=== PATIENT | female | born 1975 | race Caucasian/White ===

== ENCOUNTER 2016-07-24 14:31 | Emergency (ER) | payer BC ==
--- NOTE | 2016-07-24 14:39 | PDOC ---
History of Present Illness - General History Source: Patient Exam Limitations: No Limitations - History of Present Illness Initial Comments: 07/24/16 14:48 The patient is a 40 year old female, with a significant past medical history of congenital hip dysplasia and brain aneurysm, who presents to the emergency department complaining of left hip pain and dislocation earlier this afternoon. The patient reports she was able to bring her son to school this morning and ambulate without any problems all morning. After returning home the patient reports she was walking up the steps, her foot slid, and her hip rotated. The patient reports a history of a left hip replacement by Dr. Mcgrath in September 2015. She reports presenting to the ED in January with similar hip pain, s/p twisting hip outside. The patient states she was out of work for two months after her last hip dislocation. The patient denies any fever, chills, headache, or dizziness. The patient denies any chest pain, shortness of breath, diaphoresis, or palpitations. The patient denies any recent travel or heavy lifting. Allergies: Penicillins, mushrooms Past Surgical History: Left hip replacement (2015) Social History: Non-smoker. Denies alcohol or drug use. Orthopedic Surgeon: Dr. Mcgrath <Daquan Harvey - Last Filed: 07/24/16 17:31> - General History Source: Patient Exam Limitations: No Limitations <Sandra Díaz - Last Filed: 07/24/16 19:31> <Paola Brown - Last Filed: 07/25/16 04:27> - General Chief Complaint: Pain Stated Complaint: LEFT HIP PAIN Time Seen by Provider: 07/24/16 14:37 Past History <Daquan Harvey - Last Filed: 07/24/16 17:31> - Past Medical History Anemia: No Asthma: No Cancer: No Cardiac Disorders: No CVA: No COPD: No CHF: No Dementia: No Diabetes: No GI Disorders: No Disorders: No HTN: No Hypercholesterolemia: No Liver Disease: No Seizures: No Thyroid Disease: No - Surgical History Abdominal Surgery: No Appendectomy: No Cardiac Surgery: No Cholecystectomy: No Lung Surgery: No Neurologic Surgery: No Orthopedic Surgery: Yes (LEFT HIP RECONSTRUCTION IN [facility]) - Psycho/Social/Smoking Cessation Hx Suicidal Ideation: No Smoking History: Former smoker Have you smoked in the past 12 months: No If you are a former smoker, when did you quit?: 2002 Hx Alcohol Use: Yes (RARE WINE) Drug/Substance Use Hx: No Substance Use Type: None Hx Substance Use Treatment: No <Sandra Díaz - Last Filed: 07/24/16 19:31> <Paola Brown Jennie - Last Filed: 07/25/16 04:27> - Past Medical History Allergies/Adverse Reactions: Allergies Allergy/AdvReac Type Severity Reaction Status Date / Time Penicillins Allergy Unknown Itching Verified 07/24/16 14:32 MUSHROOMS Allergy Severe ABDOMEN Uncoded 07/24/16 14:32 Home Medications: Ambulatory Orders Oxycodone HCl/Acetaminophen [Percocet 5-325 mg Tablet] 1 tab PO Q6H PRN #12 tablet MDD 4 tabs 07/24/16 Review of Systems - Review of Systems Able to Perform ROS?: Yes Comments:: 07/24/16 14:48 GENERAL/CONSTITUTIONAL: No: fever, chills, weakness, loss of appetite. HEAD, EYES, EARS, NOSE AND THROAT: No: change in vision, ear pain, discharge, sore throat, throat swelling. CARDIOVASCULAR: No: chest pain, lightheadedness, palpitations, syncope RESPIRATORY: No: cough, shortness of breath, wheezing, hemoptysis, stridor. GASTROINTESTINAL: No: nausea, vomiting, abdominal cramping, diarrhea, rectal bleeding, constipation. GENITOURINARY: No: dysuria, hematuria, frequency, urgency, flank pain. MUSCULOSKELETAL: Yes: +left hip dislocation, +left hip pain. No: back pain, neck pain. SKIN AND BREASTS: No: lesions, pallor, rash or easy bruising. NEUROLOGIC: No: headache, vertigo, paresthesias, weakness ENDOCRINE: No: unexplained weight gain or loss HEMATOLOGIC/LYMPHATIC: No: anemia, easy bleeding, swelling nodes <Harvey,Giomilsy - Last Filed: 07/24/16 17:31> *Physical Exam - Vital Signs Last Vital Signs Temp Pulse Resp BP Pulse Ox 98.1 F 74 20 116/97 100 07/24/16 14:31 07/24/16 14:31 07/24/16 14:31 07/24/16 14:31 07/24/16 14:31 - Physical Exam Comments: 07/24/16 14:48 GENERAL: Patient is tearful and uncomfortable. HEAD: Normal with no signs of trauma. EYES: PERRLA, EOMI, sclera anicteric, conjunctiva clear. ENT: Ears normal, nares patent, oropharynx clear without exudates. Moist mucous membranes. NECK: Normal range of motion, supple without lymphadenopathy, JVD, or masses. LUNGS: Breath sounds equal, clear to auscultation bilaterally. No wheezes, and no crackles. HEART:Tachycardic. Regular rhythm, normal S1 and S2 without murmur, rub or gallop. ABDOMEN: Soft, nontender, normoactive bowel sounds. No guarding, no rebound. EXTREMITIES: No clubbing or cyanosis. No erythema. NEUROLOGICAL: Cranial nerves II through XII grossly intact. Normal speech. No focal neurological deficits. MUSCULOSKELETAL: +Left leg is shortened and externally rotated. Back non-tender to palpation, no CVA tenderness SKIN: Warm, Dry, normal turgor, no rashes or lesions noted. <Daquan Harvey - Last Filed: 07/24/16 17:31> - Vital Signs Last Vital Signs Temp Pulse Resp BP Pulse Ox 98.1 F 57 L 16 118/79 100 07/24/16 14:31 07/24/16 20:26 07/24/16 20:26 07/24/16 20:26 07/24/16 20:26 <Paola Brown - Last Filed: 07/25/16 04:27> ED Treatment Course - LABORATORY CBC & Chemistry Diagram: 07/24/16 15:04 07/24/16 15:04 - RADIOLOGY Radiograph Interpretation: 07/24/16 17:29 EXAM: X-RAY Hip and Pelvis INTERPRETED BY: Dr. Gusman REVIEWED BY: Dr. Díaz IMPRESSION: Superior dislocation of the left femoral head prosthesis relative to the acetabular cup. <Daquan Harvey - Last Filed: 07/24/16 17:31> - LABORATORY CBC & Chemistry Diagram: 07/24/16 15:04 07/24/16 15:04 <Sandra Díaz - Last Filed: 07/24/16 19:31> - LABORATORY CBC & Chemistry Diagram: 07/24/16 15:04 07/24/16 15:04 - ADDITIONAL ORDERS Additional order review: Laboratory Results 07/24/16 07/24/1617 15:04 15:04 15:04 INR Sodium Potassium Chloride Carbon Dioxide Anion Gap BUN Creatinine Creat Clearance w eGFR Random Glucose Calcium Total Bilirubin AST ALT Alkaline Phosphatase Total Protein Albumin Serum , Qual Negative Blood Type AB NEGATIVE AB NEGATIVE Antibody Screen Negative 07/24/16 07/24/16 15:04 15:04 INR 0.95 L Sodium 133 L Potassium 3.3 L Chloride 107 Carbon Dioxide 21 L Anion Gap 5 L BUN 18 D Creatinine 0.7 Creat Clearance w eGFR > 60 Random Glucose 94 Calcium 9.4 Total Bilirubin 0.3 AST 24 ALT 16 Alkaline Phosphatase 51 Total Protein 7.0 Albumin 4.6 Serum , Qual Blood Type Antibody Screen 07/24/16 15:04 RBC 4.69 D MCV 86.9 MCHC 34.7 RDW 11.6 MPV 9.4 Neutrophils % 78.8 Lymphocytes % 16.0 Monocytes % 3.5 L Eosinophils % 0.8 Basophils % 0.9 - Medications Given in the ED: ED Medications Discontinued Medications Generic Name Dose Route Start Last Admin Trade Name Jean Carlosq PRN Reason Stop Dose Admin Hydromorphone HCl 0.5 mg 07/24/16 14:42 07/24/16 15:10 Dilaudid Injection - IVPB 07/24/16 14:43 0.5 mg NOW ONE Administration Hydromorphone HCl 0.5 mg 07/24/16 14:53 07/24/16 15:11 Dilaudid Injection - IVPB 07/24/16 14:54 0.5 mg NOW ONE Administration Hydromorphone HCl 0.5 mg 07/24/16 17:40 07/24/16 18:13 Dilaudid Injection - IVPUSH 07/24/16 17:41 0.5 mg NOW ONE Administration <Paola Brown - Last Filed: 07/25/16 04:27> Medical Decision Making - Medical Decision Making 07/24/16 14:39 A portion of this note was documented by scribe services under my direction. I have reviewed the details of the note, within reason, and agree with the documentation with the following case summary and management plan written by me. Nursing documentation reviewed and incorporated into medical decision making 07/24/16 14:49 Pt presents to the ER tearful s/p repeat dislocation of her left hip Pt placed in stretcher from car clothing removed Iv placed, Dilaudid ordered Xray hip/pelvis ordered Dr Tatum at bedside <Sandra Díaz - Last Filed: 07/24/16 19:31> - Medical Decision Making Patient alert and without complaints, discharged from the emergency room with clear sensorium and ambulating without difficulty. Patient asked for a "strong " medications to be used if she has any recurrence of hip pain. Patient states that she had used nonsteroidal anti-inflammatories (specifically naproxen) for quite a while prior to her hip replacement and does not want to use this class of medications any longer. She states that she was given small prescription of Percocet when she was seen at [facility] last year, when she first dislocated her hip. She states that this was effective for recurrent pain. Patient given a small (#12) prescription for Percocet 5/325 to be used up to 4 times a day as needed for severe pain. Follow-up will be with [facility]. She should return to the emergency room if she has persistent severe pain. <Paola Brown - Last Filed: 07/25/16 04:27> *DC/Admit/Observation/Transfer - Attestations Scribe Attestion: 07/24/16 14:48 Documentation prepared by Daquan Harvey, acting as medical delivery technician for Sandra Díaz MD. <Daquan Harvey - Last Filed: 07/24/16 17:31> - Discharge Dispostion Admit: No <Sandra Díaz - Last Filed: 07/24/16 19:31> <Paola Brown - Last Filed: 07/25/16 04:27> Diagnosis at time of Disposition: Posterior dislocation of hip, closed Qualifiers: Encounter type: initial encounter Laterality: left Qualified Code(s): S73.015A - Posterior dislocation of left hip, initial encounter - Discharge Dispostion Disposition: HOME Condition at time of disposition: Improved - Prescriptions Prescriptions: Oxycodone HCl/Acetaminophen [Percocet 5-325 mg Tablet] 1 tab PO Q6H PRN #12 tablet MDD 4 tabs PRN Reason: Severe Pain - Referrals Referrals: Vitor Mcgrath MD [Staff Physician] - - Patient Instructions Printed Discharge Instructions: DI for Hip Dislocation -- Adult Additional Instructions: Thank you for coming in to the ER today You will need to follow up with orthopedics for future planning Please return to the ER for any other concerns or complaints
[2016-07-24] MEDS ORDERED: HYDROmorphone HCL CARPU-JECT 1 MG/1 ML DISP.SYRIN IVPB ONE ×2 (14:42→14:53)
[2016-07-24 14:44] VITALS: TEMP 98.1; BMI 27.9
[2016-07-24] MEDS ORDERED: HYDROmorphone HCL CARPU-JECT 2 MG/1 ML DISP.SYRIN ONE (14:47)
[2016-07-24 15:23] LABS: BASOPHIL 0.9 % (0-2.0); EOSINOPHIL 0.8 % (0-4.5); MCH 30.2 pg (25.7-33.7); MCHC 34.7 g/dl (32.0-36.0); MEAN CELL VOLUME 86.9 fl (80-96); MEAN PLT VOLUME 9.4 fl (7.5-11.1); NEUTROPHILS 78.8 % (42.8-82.8); PLATELET COUNT 235 K/MM3 (134-434); RDW 11.6 % (11.6-15.6); WHITE BLOOD COUNT 8.6 K/mm3 (4.0-10.0)
[2016-07-24 15:33] LABS: ALBUMIN 4.6 g/dl (3.5-5.0); ALK PHOS 51 U/L (32-92); ANION GAP 5 (8-16); BILIRUBIN,TOTAL 0.3 mg/dl (0.2-1.0); CALCIUM 9.4 mg/dl (8.4-10.2); CO2 21 mmol/L (22-28); CREATININE 0.7 mg/dl (0.6-1.3); GLUCOSE,RANDOM 94 mg/dl (74-106); SGOT/AST 24 U/L (10-42); SGPT/ALT 16 U/L (10-40)
[2016-07-24 15:42] LABS: INR 0.95 (0.82-1.09); PROTHROMBIN TIME (PATIENT) 10.6 SEC (10.2-13.0)
[2016-07-24] MEDS ORDERED: HYDROmorphone HCL CARPU-JECT 1 MG/1 ML DISP.SYRIN IVPUSH ONE (17:40)
[2016-07-24 20:27] VITALS: BP 118/79; PULSE 57
[2016-07-24] MEDS ORDERED: OXYCODONE/APAP 5/325MG COMBO TABLET ONE (20:47)
[2016-07-24] MEDS ORDERED: OXYCODONE/APAP 5/325MG COMBO TABLET PO ONE (20:47)
--- NOTE | 2016-07-24 20:50 | PDOC ---
*Physical Exam - Vital Signs Last Vital Signs Temp Pulse Resp BP Pulse Ox 98.1 F 57 L 16 118/79 100 07/24/16 14:31 07/24/16 20:26 07/24/16 20:26 07/24/16 20:26 07/24/16 20:26 ED Treatment Course - LABORATORY CBC & Chemistry Diagram: 07/24/16 15:04 07/24/16 15:04 - ADDITIONAL ORDERS Additional order review: Laboratory Results 07/24/16 07/24/16 07/24/16 15:04 15:04 15:04 INR Sodium Potassium Chloride Carbon Dioxide Anion Gap BUN Creatinine Creat Clearance w eGFR Random Glucose Calcium Total Bilirubin AST ALT Alkaline Phosphatase Total Protein Albumin Serum , Qual Negative Blood Type AB NEGATIVE AB NEGATIVE Antibody Screen Negative 07/24/16 07/24/16 15:04 15:04 INR 0.95 L Sodium 133 L Potassium 3.3 L Chloride 107 Carbon Dioxide 21 L Anion Gap 5 L BUN 18 D Creatinine 0.7 Creat Clearance w eGFR > 60 Random Glucose 94 Calcium 9.4 Total Bilirubin 0.3 AST 24 ALT 16 Alkaline Phosphatase 51 Total Protein 7.0 Albumin 4.6 Serum , Qual Blood Type Antibody Screen 07/24/16 15:04 RBC 4.69 D MCV 86.9 MCHC 34.7 RDW 11.6 MPV 9.4 Neutrophils % 78.8 Lymphocytes % 16.0 Monocytes % 3.5 L Eosinophils % 0.8 Basophils % 0.9 - Medications Given in the ED: ED Medications Discontinued Medications Generic Name Dose Route Start Last Admin Trade Name Freq PRN Reason Stop Dose Admin Hydromorphone HCl 0.5 mg 07/24/16 14:42 07/24/16 15:10 Dilaudid Injection - IVPB 07/24/16 14:43 0.5 mg NOW ONE Administration Hydromorphone HCl 0.5 mg 07/24/16 14:53 07/24/16 15:11 Dilaudid Injection - IVPB 07/24/16 14:54 0.5 mg NOW ONE Administration Hydromorphone HCl 0.5 mg 07/24/16 17:40 07/24/16 18:13 Dilaudid Injection - IVPUSH 07/24/16 17:41 0.5 mg NOW ONE Administration Progress Note - Progress Note Progress Note: Care of this patient received from Dr. Díaz. Patient was discharged from the emergency room after approximately one hour post hip dislocation reduction. Patient was awake and alert without significant complaints. She was able to ambulate without difficulty. Because patient asked for "strong" medications to be used as needed (and did not want to use nonsteroidal anti-inflammatory drugs), small prescription of Percocet 5/325 (#12) transmitted to the patient's pharmacy *DC/Admit/Observation/Transfer Diagnosis at time of Disposition: Posterior dislocation of hip, closed Qualifiers: Encounter type: initial encounter Laterality: left Qualified Code(s): S73.015A - Posterior dislocation of left hip, initial encounter - Discharge Dispostion Disposition: HOME Condition at time of disposition: Improved - Prescriptions Prescriptions: Oxycodone HCl/Acetaminophen [Percocet 5-325 mg Tablet] 1 tab PO Q6H PRN #12 tablet MDD 4 tabs PRN Reason: Severe Pain - Referrals Referrals: Vitor Mcgrath MD [Staff Physician] - - Patient Instructions Printed Discharge Instructions: DI for Hip Dislocation -- Adult Additional Instructions: Thank you for coming in to the ER today You will need to follow up with orthopedics for future planning Please return to the ER for any other concerns or complaints - Post Discharge Activity
--- NOTE | 2016-07-25 10:24 | CONS ---
DATE OF DICTATION: 07/24/2016 REASON FOR CONSULTATION: A left hip dislocation. HISTORY OF PRESENT ILLNESS: The patient's had called me from the car. She is a 40-year-old female well known by me, status post hip replacement for hip dysplasia, with a prior history of dysplasia surgery in [facility]. She had done well, initially, after surgery. Several months after the surgery, was leaning forward and putting her foot in an externally rotated position, dislocated. Was seen by one of my associates at [facility] in [place] where she had a closed reduction. She was seen in the office. She was followed with closed treatment and had been doing well. Earlier today was with her . Said that she just was walking down the stairs at [employer]. She does not believe she slipped or fell and then she said she felt her hip going out. She did not fall as this was happening, but held onto the railing. Her helped her to the car. They called an ambulance, but the ambulance was going to drive her to [facility] in [place] and she wanted to go to the [facility]. Her drove her to the hospital and he called me from the car. I met him at the hospital. When they arrived, we obtained x-rays showing a hip dislocation. Past medical history, past surgical history, allergies, medications, review of systems are all documented in the chart. Chart and x-rays were reviewed. X-rays reveal no significant loosening of her well-fit hip prosthesis over the acetabulum and proximal femur. The hip is obviously dislocated. PHYSICAL EXAMINATION: General: She is a well-developed, well-nourished female, alert and oriented x3, appropriate affect. Seen in bed. Obviously upset about her situation. Her is at the bedside. Head, eyes, ears, nose, and throat: Normocephalic. Atraumatic. Musculoskeletal: Cervical, thoracic and lumbar spine is nontender. Extremities: Her leg is externally rotated and shortened. She is neurovascularly intact. There was a slight bruise on the proximal thigh. IMPRESSION: Anterior dislocation, status post total hip replacement for hip dysplasia. This is the second event for this woman. PLAN: I had a long, detailed discussion with the patient and her . I have recommended immediate closed reduction. She has eaten brunch which consisted of eggs with salami. In consultation with the anesthesiologist, in order to give her anesthesia safely without a high risk of aspiration, we have elected to wait 8 hours to allow her stomach the proper time to empty. PROCEDURE: At approximately 7:20 p.m., with the assistance of Dr. Agarwal from Anesthesiology who administered essentially general anesthesia with propofol, a closed reduction was then performed. Post-reduction x-rays are pending, but leg grossly aligned. Stability was checked. She did not have gross instability after the procedure. However, the amount of force it took to put the hip in was minimal. Her legs looked grossly at length. We are waiting for post-reduction x-rays. FOLLOWUP: The patient will be full weight-bearing as tolerated. She is going to limit her mobility. She is going to follow up in the office next week. At some point, we will discuss her treatment options, which I had already discussed in detail, as revision surgery to gain stability, and that would be either making the leg longer, placing a longer femoral ball and neck, assessing the component, seeing if it we cannot get stability, possibly changing the position of the components, or possibly adding aversion to the liner. I discussed their questions with them and they understand the above. They are going to follow up with me in the office in 1 week's time. YAIMA WALDEN M.D. [id number]
== END 2016-07-24 20:41 | disposition home or self-care (01) ==
LOC: FER 14:31
PROC: 3E033NZ Introduction of Analgesics, Hypnotics, Sedatives into Peripheral Vein, Percutaneous Approach (ICD-10-PCS; principal; 2016-07-24)
PROC: 0SSBXZZ Reposition Left Hip Joint, External Approach (ICD-10-PCS; 2016-07-24)
DX: S73.015A Posterior dislocation of left hip, initial encounter (principal); W10.9XXA Fall (on) (from) unspecified stairs and steps, initial encounter; Y93.89 Activity, other specified; Y92.9 Unspecified place or not applicable; Z87.891 Personal history of nicotine dependence
CPT/HCPCS: 36415; 73502-TC-LT; 73523-TC; 80053; 84703; 85025; 85610; 86850; 86900; 86901; 99284-25

== ENCOUNTER 2016-08-23 06:03 | Inpatient (IN) | payer BC ==
[2016-08-13 17:00] VITALS: BMI 27.4
[2016-08-23] MEDS ORDERED: ROPIVACAINE HCL 0.5% 30ML VIAL ONE (06:39)
[2016-08-23] MEDS ORDERED: SODIUM CHLORIDE 0.9% P/F 10 ML VIAL IJ ONE (06:39)
[2016-08-23] MEDS ORDERED: MIDAZOLAM HCL 2 MG/2 ML SINGLE DOSE VIAL ONE ×3 (06:39→08:43)
[2016-08-23] MEDS ORDERED: DEXAMETHASONE SOD PHOSPHATE/PF 10 MG/ML SDV ONE (06:40)
[2016-08-23] MEDS ORDERED: BUPIVACAINE HCL/PF (5 MG/ML) 30 ML VIAL IJ ONE (07:00)
[2016-08-23] MEDS ORDERED: TRANEXAMIC ACID 1000 MG/10 ML VIAL ONE ×4 (07:25→10:42)
[2016-08-23] MEDS ORDERED: VANCOMYCIN 1,000 MG VIAL (RESTRICTED TO ID ONLY) ONE ×2 (07:26→08:08)
[2016-08-23] MEDS ORDERED: ROPIVICAINE 0.2%/MORPH PF/KETOROLAC - 51ML DISP.SYRINGE IA ONE (07:26)
[2016-08-23] MEDS ORDERED: EPINEPHrine/PF 1 MG/1 ML (1:1,000) AMPULE ONE (07:32)
[2016-08-23] MEDS ORDERED: LIDOCAINE 1% P/F 10 MG/ML VIAL ONE (07:33)
[2016-08-23] MEDS ORDERED: SUCCINYLCHOLINE CHLORIDE 200 MG/10 ML VIAL ONE (08:20)
[2016-08-23] MEDS ORDERED: PROPOFOL 20 ML ONE ×3 (08:20→10:35)
[2016-08-23] MEDS ORDERED: MAGNESIUM HYDROX 2400MG/30ML ORAL SUSPENSION 30 ML CUP PO PRN (11:28)
[2016-08-23] MEDS ORDERED: ONDANSETRON 4 MG/2 ML VIAL IVPB PRN (11:28)
[2016-08-23] MEDS ORDERED: LACTATED RINGERS SOLUTION 1,000 ML IV SCH (11:30)
[2016-08-23] MEDS ORDERED: oxyCODONE HCL 5 MG TABLET PO PRN (11:36)
[2016-08-23] MEDS ORDERED: ACETAMINOPHEN 325 MG TABLET (FP) PO SCH (11:45)
[2016-08-23] MEDS: diazePAM 2 MG TABLET PO SCH ×3 (12:23→20:14)
[2016-08-23] MEDS ORDERED: MAG HYDROX/AL HYDROX/SIMETH 30 ML UNIT-DOSE CUP PO PRN (12:42)
[2016-08-23] MEDS ORDERED: TRANEXAMIC ACID 1000 MG/10 ML VIAL IVPUSH ONE (14:00)
--- NOTE | 2016-08-23 14:00 | OP ---
DATE OF OPERATION: 08/23/2016 SURGEON: Vitor Mcgrath MD ANESTHESIOLOGIST: Cheyenne Cruz MD TYPE OF ANESTHESIA: Lumbar plexus block with spinal. PREOPERATIVE DIAGNOSIS: Hip instability, status post left total hip replacement. POSTOPERATIVE DIAGNOSIS: Hip instability, status post left total hip replacement. PROCEDURE: Revision of total hip replacement. BUSINESS REPRESENTATIVE: AYO Ramsey, whose skilled surgical assistance was necessary for the retraction and protection of vital structures to the handling and implementation of precise and delicate surgical instrumentation as well as the overall safe conveyance of the procedure. HARDWARE USED: A +9, 32-mm outer-diameter ceramic femoral ball. Vancomycin was given preoperatively for prophylaxis against infection, 1 g. Tranexamic acid, 1 g, was given preoperatively; a 2nd g was given at the time of wound closure; a 3rd g was instilled into the hip joint at the conclusion of the procedure. A mixture of ropivacaine, Duramorph, and Toradol were instilled into the hip for additional analgesia. SPECIMENS SENT TO PATHOLOGY: Hip lining as well as femoral head. Specimen cultures were obtained as well as a cell count of fluid around the hip joint. FINDINGS AT THE TIME OF SURGERY: Revealed no obvious signs of infection. No gross instability. There was some increased shuck width with push and pull the cultures. INDICATIONS: The patient is a 40-year-old female who has a history of prior left hip surgery when she was a young child in [facility] presumably for hip dysplasia, had been doing well up until several years ago when she started to limp and then started experiencing severe pain unrelieved with conservative treatment. She underwent total hip replacement without any complications, had recovered well, and around 4 months after her initial surgery had an episode of hip dislocation, seen in the emergency room and had it relocated, and was doing well until approximately 1 month ago when she had a 2nd dislocation, and her had actually called me from his car as he drove her to [facility] where she had what appeared to be an anterior dislocation. We had performed a closed reduction under anesthesia and after closed reduction did not have gross instability in terms of range of motion, and she was seen back in the office. We discussed treatment options for her, and we discussed additional therapy to make the muscles on her legs stronger as well as waiting additional time to allow the musculature around the hip to heal up after the dislocation. We discussed the risks of further dislocation given the fact that she has already had 2 dislocations. After a thorough discussion with patient regarding risks, benefits, and alternatives, the patient wished to proceed with revision hip surgery. We explained the risks of surgery to include, but not be limited to, infection, chance that her hip could continue to pop out of place despite additional surgery, chance she could have a permanent neurologic injury which could leave her with permanent loss of use of function and permanent pain, chance that her hip she could develop an injection which her risk for an infection is higher given the fact that she has had prior surgery, chance that she could have a blood clot that could spread from her legs to her lungs and even cause , and this could occur despite anticoagulation and DVT prophylaxis, and chance that should she develop an infection or else have recurrent instability, she may need additional surgery including removing her prosthesis in case of an infection, she may need long-term IV antibiotics, and should the hip continue to dislocate, she may need to have additional revision surgery performed. We discussed the risks and benefits of surgery. After a thorough discussion, the patient wished to proceed. She demonstrates an excellent understanding of postoperative protocol. Unlike her initial surgery which was an anterior hip replacement, we are planning to do a posterior hip replacement, which will give us more access to the femur should we need to revise this as well. Patient understands this. She and her understand the risks involved appreciably. They have identified her left leg as the operative site, which was confirmed by the operating room staff, and they agreed to proceed with the planned procedure. PROCEDURE FOLLOWS: After administration of paravertebral block in the preoperative holding area, the patient was brought to the operating room where spinal anesthetic was administered by the anesthesiologist. The patient was in the supine position. Fluoroscopic image intensifier was brought in. Hip was taken through a range of motion and found to be stable with the hip flexed to 90 degrees and internally rotated maximally. There was no posterior instability. With the hip maximally externally rotated, adducted, there was no significant anterior instability. However, with a push-pull, there was approximately 5 mm of inferior instability. The patient was then placed in the decubitus position, being held in place with the posterior hip positioner, all dependent bony prominences were well padded, specifically the patients dependent axilla and dependent fibular head and ankle. The left leg was then prepped and draped in the usual sterile manner. A standard posterior incision to the hip was made. The incision was approximately 15 cm in length. The incision was carried down through the subcutaneous tissues using electrocautery device and Aquamantys device to maintain hemostasis. The gluteus laura and anterior iliotibial band were then divided in line with its fibers, exposing the hip capsule. The hip capsule of note, there were no external rotators of the hip, no significant external rotators of the hips seen at the level of capsule. There was visualization of the sciatic nerve, which appeared to be normal, but the external rotators of the hip were essentially not present. There was a thickened capsule, however, which was taken down off the femoral neck. There was some fluid that was aspirated, clear fluid, and sent for a cell count as well as Gram stain. A portion of the synovial lining was sent to Pathology. There were no signs of infection. The hip was then dislocated posteriorly. The shuck test that was performed push-pull again showing about 5 mm of inferior instability, but good posterior stability based on the positioning with the current components. Prior femoral head was removed. The acetabular liner was in excellent condition. The soft tissue around the components were removed using a curette. The stability of the components was excellent. There were no signs of loosening or instability of the femoral or acetabular components. Trial reduction of various femoral balls was performed with a +9 mm femoral ball. Hip was reduced and found to excellent stability with the hip flexed to the chest. There was no posterior instability. With the hip flexed at 90 degrees, it was able to be internally rotated to approximately 90 degree before there was any posterior instability. With the hip flexed to 90 degrees, it was maximally internally rotated without any posterior instability. With the hip fully externally rotated, adducted, and extended, there was no anterior instability. The push-pull test revealed no elimination of the inferior subluxation where it was essentially eliminated. A +13 ball was then trialed and gave no additional stability. This was then removed. The wounds were then irrigated with copious amounts of antibiotic normal saline solution. A +9 ball was then impacted in place and reduced, and this was again taken through a range of motion. The fluoroscopic image intensifier was brought in, as well, with a shuck test both visually and manually, the 5 mm of shuck was eliminated. Under fluoroscopic image intensification, the hip was maximally extended and rotated, extended, adducted, without any anterior instability. Likewise, the hip was assessed under fluoroscopy with no posterior instability. The hip was once again irrigated with copious amount of antibiotic normal saline solution. This was evacuated. A dilute Betadine solution was instilled into the wound and left to sit for 3 minutes. After the 3 minutes, the dilute Betadine solution was evacuated, and the wound was irrigated once again with copious amounts of antibiotic normal saline solution. The posterior capsule then had four No. 2 FiberWires placed into it at regular intervals and four drill holes were then created, three directly posteriorly, one slightly anteriorly, to which the patients hip capsule was repaired. These were then tied to themselves over bony bridges creating an excellent posterior capsule repair. The wounds were then irrigated with copious amounts of antibiotic normal saline solution. Tranexamic acid, 1 g, was instilled into the wound, and then, the pain cocktail was instilled into the wound. The gluteus laura and iliotibial band were then reapproximated to itself using No. 1 Vicryl suture and then a running No. 1 Stratafix suture was then used to further strengthen the iliotibial band and gluteus laura repair. Subcutaneous tissues were closed with undyed 2-0 Vicryl sutures, and the skin edges were further reapproximated with running 2-0 Stratafix suture. Dermabond was then applied. After the Dermabond had hardened, Aquacel dressing was then applied. The patient was then placed in the supine position where permanent x-rays were obtained showing excellent position and increased leg length compared to preoperatively with no signs of loosening. Patient was then awoken and transported to the recovery room in stable condition having tolerated the procedure well. Of note, the patient will have DVT prophylaxis with aspirin 81 mg twice a day for the next 4 weeks as well as thigh-high REBEKAH stockings and sequential compression devices. Of note, the dependent leg, the nonoperative leg, had a thigh-high REBEKAH stocking and sequential compression device placed during the procedure. We will discontinue prophylactic antibiotics within 24 hours. We are going to have strict posterior hip precautions for the patient for the first 6-12 weeks. Brianna [id number]
[2016-08-23 14:26] LABS: SYNOVIAL FLUID LYMPHOCYTES 68 %; SYNOVIAL FLUID NEUTROPHILS 30 %
[2016-08-23 14:27] LABS: SYNOVIAL FLUID MACROPHAGES 1 %
--- NOTE | 2016-08-23 14:51 | CONSULT ---
[id number] care. HISTORY OF PRESENT ILLNESS: This is a 40 yo woman with history of right carotid artery aneurysm, L hip replacement with subsequent dislocations of prosthesis on 02/09/16 and 07/23/16 who presents to care following a revision of left hip replacement. She states that on 07/23/16 she was standing in her living room when she felt a "sharp stabbing pain inside my hip" and had an anterior dislocation when she tried to take a step. REVIEW OF SYSTEMS: CONSTITUTIONAL: Absent: fever, chills, diaphoresis, generalized weakness, malaise, loss of appetite, weight change HEENT: Absent: rhinorrhea, nasal congestion, throat pain, throat swelling, difficulty swallowing, mouth swelling, ear pain, eye pain, visual changes CARDIOVASCULAR: Absent: chest pain, syncope, palpitations, irregular heart rate, lightheadedness , peripheral edema RESPIRATORY: Absent: cough, shortness of breath, dyspnea with exertion, orthopnea, wheezing, stridor, hemoptysis GASTROINTESTINAL: Absent: abdominal pain, abdominal distension, nausea, vomiting, diarrhea, constipation, melena, hematochezia GENITOURINARY: Urinary incontinence Absent: dysuria, frequency, urgency, hesitancy, hematuria, flank pain, genital pain MUSCULOSKELETAL: Left hip post-op pain Absent: myalgia, arthralgia, joint swelling, back pain, neck pain SKIN: Absent: rash, itching, pallor HEMATOLOGIC/IMMUNOLOGIC: Absent: easy bleeding, easy bruising, lymphadenopathy, frequent infections ENDOCRINE: Absent: unexplained weight gain, unexplained weight loss, heat intolerance, cold intolerance NEUROLOGIC: Absent: headache, focal weakness or paresthesias, dizziness, unsteady gait, seizure, mental status changes, bladder or bowel incontinence PSYCHIATRIC: Absent: anxiety, depression, suicidal or homicidal ideation, hallucinations. PHYSICAL EXAMINATION Vital Signs - 24 hr 08/23/16 08/23/16 08/23/16 06:46 06:49 11:30 Temperature 98.1 F 98. F Pulse Rate 68 62 Respiratory 16 16 Rate Blood Pressure 102/71 97/70 O2 Sat by Pulse 100 99 Oximetry (%) 08/23/16 08/23/16 08/23/16 11:35 11:40 11:45 Temperature Pulse Rate 54 L 56 L 58 L Respiratory 18 14 15 Rate Blood Pressure 103/58 108/63 106/61 O2 Sat by Pulse 100 100 100 Oximetry (%) 08/23/16 08/23/16 08/23/16 12:00 12:15 12:30 Temperature Pulse Rate 65 58 L 57 L Respiratory 19 17 15 Rate Blood Pressure 109/61 107/64 99/60 O2 Sat by Pulse 100 100 100 Oximetry (%) 08/23/16 08/23/16 12:40 13:00 Temperature 98. F 97.7 F Pulse Rate 57 L 58 L Respiratory 15 15 Rate Blood Pressure 100/60 116/63 O2 Sat by Pulse 100 Oximetry (%) GENERAL: Awake, alert, and fully oriented, in no acute distress. HEAD: Normal with no signs of trauma. EYES: Pupils equal, round and reactive to light, extraocular movements intact, sclera anicteric, conjunctiva clear. No lid lag. EARS, NOSE, THROAT: Ears normal, nares patent, oropharynx clear without exudates. Moist mucous membranes. NECK: Normal range of motion, supple without lymphadenopathy, JVD, or masses. LUNGS: Breath sounds equal, clear to auscultation bilaterally. No wheezes, and no crackles. No accessory muscle use. HEART: Regular rate and rhythm, normal S1 and S2 without murmur, rub or gallop. ABDOMEN: Soft, nontender, not distended, normoactive bowel sounds, no guarding, no rebound, no masses. No hepatomegaly or splenomegaly. +flatus MUSCULOSKELETAL: Normal range of motion at all joints. No bony deformities or tenderness. No CVA tenderness. UPPER EXTREMITIES: 2+ pulses, warm, well-perfused. No cyanosis. No clubbing. Cap refill <2 seconds. No peripheral edema. LOWER EXTREMITIES: 2+ pulses, warm, well-perfused. No calf tenderness. No peripheral edema. Hip wedge in place post-op. NEUROLOGICAL: Cranial nerves II-XII intact. Normal speech. Neurosensory and neuromuscular intact. PSYCHIATRIC: Cooperative. Good eye contact. Appropriate mood and affect. SKIN: Warm, dry, normal turgor, no rashes or lesions noted. Laboratory Results - last 24 hr 08/23/16 08/23/16 06:10 12:00 Urine HCG, Qual Negative Synovial Source Left hip Synovial WBC 1736 Synovial RBC 74177 Synovial Neutrophils 30 Synovial Lymphocytes 68 Synovial Macrophages 1 Synovial Other Cells Synovial lining 1 Synovial Diff Comment Building Services Coordinator Active Medications Generic Name Dose Route Start Last Admin Trade Name Freq PRN Reason Stop Dose Admin Acetaminophen 650 mg 08/23/16 18:30 Tylenol - PO 08/26/17 11:44 Q6H MURALI Al Hydroxide/Mg Hydroxide 30 ml 08/23/16 12:42 Mylanta Oral Suspension - PO Q4H PRN DYSPEPSIA Ascorbic Acid 500 mg 08/23/16 22:00 Vitamin C - PO BID [facility] Aspirin 325 mg 08/24/16 08:00 Asa - PO DAILY@0800 [facility] Celecoxib 200 mg 08/23/16 22:00 Celebrex - PO BID [facility] Diazepam 2 mg 08/23/16 11:45 08/23/16 13:22 Valium - PO Not Given Q8H [facility] Fentanyl 50 mcg 08/23/16 12:40 Sublimaze Injection - IVPUSH 08/26/16 12:41 [id number] PRN PAIN Ferrous Sulfate 325 mg 08/23/16 17:30 Feosol - PO BIDWM [facility] Gabapentin 300 mg 08/23/16 22:00 Neurontin - PO 08/26/16 21:59 BID [facility] Lactated Ringer's 1,000 mls @ 125 mls/hr 08/23/16 11:30 08/23/16 13:22 Lactated Ringers Solution IV 08/24/16 06:00 Not Given ASDIR [facility] Magnesium Hydroxide 30 ml 08/23/16 11:28 Milk Of Magnesia - PO PRN PRN CONSTIPATION Multivitamins/Minerals/Vitamin C 1 tab 08/24/16 10:00 Tab-A-Vit - PO DAILY [facility] Ondansetron HCl 4 mg 08/23/16 11:28 Zofran Injection IVPB Q6H PRN NAUSEA Oxycodone HCl 10 mg 08/23/16 22:00 Oxycontin - PO 08/26/16 11:37 BID [facility] Oxycodone HCl 5 mg 08/23/16 11:36 Roxicodone - PO Q3H PRN PAIN LEVEL 1-5 Oxycodone HCl 10 mg 08/23/16 11:36 Roxicodone - PO Q3H PRN PAIN LEVEL 6-10 Pantoprazole Sodium 40 mg 08/24/16 10:00 Protonix - PO DAILY [facility] Senna/Docusate Sodium 2 tablet 08/23/16 22:00 Pericolace - PO BID [facility] Vancomycin HCl 1,000 mg 08/23/16 20:00 Vancomycin (Pre-Docked) IVPB 08/23/16 20:01 ONCE ONE Protocol ASSESSMENT/PLAN: A: This is a 40 yo woman presenting s/p revision of left hip repair. The patient reports pain of 7 out of 10 to surgical site that is sharp in nature. She reports that repositioning helps make the pain tolerable. P: 1)Left hip revision -per Alcides 2)urinary incontinence -likely s/p spinal anesthesia 3)PPX -SCD -advance activity per surgeon Dispo: We will continue to follow the patient. Thank you for this consultative opportunity. Visit type - Emergency Visit Emergency Visit: No - New Patient This patient is new to me today: Yes Date on this admission: 08/30/16 - Critical Care Critical Care patient: No
[2016-08-23] MEDS: oxyCODONE HCL 5 MG TABLET PO PRN ×2 (15:04→17:50)
[2016-08-23] MEDS: FERROUS SO4 325 MG TABLET (FP) PO SCH (17:51)
[2016-08-23] MEDS: ACETAMINOPHEN 325 MG TABLET (FP) PO SCH ×2 (17:54→23:41)
[2016-08-23] MEDS ORDERED: VANCOMYCIN 1 GRAM (PRE-DOCKED) 1,000 MG/250 ML BAG IVPB ONE (20:00)
[2016-08-23] MEDS ORDERED: GABAPENTIN 300 MG CAPSULE (FP) PO SCH (22:00)
[2016-08-23] MEDS: ASCORBIC ACID 500 MG TABLET (FP) PO SCH (22:04)
[2016-08-23] MEDS: oxyCODONE HCL 10 MG SUSTAINED ACTING TABLET PO SCH (22:04)
[2016-08-23] MEDS: SENNOSIDES/DOCUSATE COMBO (SENNA PLUS) TABLET (UD) PO SCH (22:04)
[2016-08-23] MEDS: CELECOXIB 200 MG CAPSULE PO SCH (22:04)
[2016-08-23] MEDS: GABAPENTIN 300 MG CAPSULE (FP) PO SCH (22:04)
[2016-08-24] MEDS: diazePAM 2 MG TABLET PO SCH ×3 (03:45→22:09)
[2016-08-24] MEDS: ACETAMINOPHEN 325 MG TABLET (FP) PO SCH ×3 (06:28→17:40)
[2016-08-24] MEDS: oxyCODONE HCL 5 MG TABLET PO PRN ×3 (06:55→17:40)
[2016-08-24 07:26] LABS: MCH 29.9 pg (25.7-33.7); MEAN CELL VOLUME 87.9 fl (80-96); MEAN PLT VOLUME 8.5 fl (7.5-11.1); PLATELET COUNT 184 K/MM3 (134-434); RDW 10.9 % (11.6-15.6); WHITE BLOOD COUNT 8.8 K/mm3 (4.0-10.8)
[2016-08-24 08:02] LABS: CALCIUM 8.4 mg/dl (8.4-10.2); COCKROFT - GAULT 98.124; CREATININE 0.7 mg/dl (0.6-1.3)
[2016-08-24] MEDS: ASPIRIN 325 MG TABLET PO SCH (09:52)
[2016-08-24] MEDS: GABAPENTIN 300 MG CAPSULE (FP) PO SCH ×2 (09:53→22:07)
[2016-08-24] MEDS: PANTOPRAZOLE 40 MG TABLET (FP) PO SCH (09:53)
[2016-08-24] MEDS: CELECOXIB 200 MG CAPSULE PO SCH ×2 (09:53→22:06)
[2016-08-24] MEDS: SENNOSIDES/DOCUSATE COMBO (SENNA PLUS) TABLET (UD) PO SCH ×2 (09:53→22:00)
[2016-08-24] MEDS: ASCORBIC ACID 500 MG TABLET (FP) PO SCH ×2 (09:54→22:06)
[2016-08-24] MEDS: oxyCODONE HCL 10 MG SUSTAINED ACTING TABLET PO SCH ×2 (09:54→22:06)
[2016-08-24] MEDS: FERROUS SO4 325 MG TABLET (FP) PO SCH ×2 (09:55→17:41)
--- NOTE | 2016-08-24 10:24 | PN ---
Physical Exam: SUBJECTIVE: Patient seen and examined; reports pain 7-8/10 at present. Pt states she has been holding off on her pain medication during the night, but did just take it. No other complaints on exam. OBJECTIVE: Vital Signs - 24 hr 3 08/23/16 08/23/16 08/23/16 08/23/16 08/23/16 08/23/16 11:30 11:35 11:40 11:45 12:00 12:15 Temperature 98. F Pulse Rate 62 54 L 56 L 58 L 65 58 L Respiratory 16 18 14 15 19 17 Rate Blood Pressure 97/70 103/58 108/63 106/61 109/61 107/64 O2 Sat by Pulse 99 100 100 100 100 100 Oximetry (%) 3 08/23/16 08/23/16 08/23/16 08/23/16 08/23/16 08/23/16 08/24/16 12:30 12:40 13:00 21:00 22:05 22:32 06:00 Temperature 98. F 97.7 F 98.1 F 98.4 F Pulse Rate 57 L 57 L 58 L 65 67 Respiratory 15 15 15 15 18 18 Rate Blood Pressure 99/60 100/60 116/63 99/67 102/64 O2 Sat by Pulse 100 100 100 97 98 Oximetry (%) GENERAL: The patient is awake, alert, and fully oriented, in no acute distress. HEAD: Normal with no signs of trauma. EYES: PERRL, extraocular movements intact, sclera anicteric, conjunctiva clear. No ptosis. ENT: Ears normal, nares patent, oropharynx clear without exudates, moist mucous membranes. NECK: Trachea midline, full range of motion, supple. LUNGS: Breath sounds equal, clear to auscultation bilaterally, no wheezes, no crackles, no accessory muscle use. HEART: Regular rate and rhythm, S1, S2 without murmur, rub or gallop. ABDOMEN: Soft, nontender, nondistended, normoactive bowel sounds, no guarding, no rebound, no hepatosplenomegaly, no masses. EXTREMITIES: 2+ pulses, warm, well-perfused, no edema. L hip aquacell dressing intact, no excessive drainage noted. NEUROLOGICAL: Cranial nerves II through XII grossly intact. Normal speech, gait not observed. PSYCH: Normal mood, normal affect. SKIN: Warm, dry, normal turgor, no rashes or lesions noted Laboratory Results - last 24 hr 3 08/23/16 08/24/16 08/24/16 12:00 07:20 07:20 WBC 8.8 RBC 3.94 Hgb 11.8 D Hct 34.6 D MCV 87.9 MCHC 34.0 RDW 10.9 L Plt Count 184 D MPV 8.5 Sodium 138 Potassium 3.7 Chloride 111 H Carbon Dioxide 23 Anion Gap 4 L BUN 14 D Creatinine 0.7 Random Glucose 94 Calcium 8.4 Synovial Source Left hip Synovial WBC 1736 Synovial RBC 16937 Synovial Neutrophils 30 Synovial Lymphocytes 68 Synovial Macrophages 1 Synovial Other Cells Synovial lining 1 Synovial Diff Comment Aerodynamic Consultant Active Medications 3 Generic Name Dose Route Start Last Admin Trade Name Jean Carlosq PRN Reason Stop Dose Admin Acetaminophen 650 mg 08/23/16 18:30 08/24/16 06:28 Tylenol - PO 08/26/17 11:44 650 mg Q6H MURALI Administration Al Hydroxide/Mg Hydroxide 30 ml 08/23/16 12:42 Mylanta Oral Suspension - PO Q4H PRN DYSPEPSIA Ascorbic Acid 500 mg 08/23/16 22:00 08/24/16 09:54 Vitamin C - PO 500 mg BID MURALI Administration Aspirin 325 mg 08/24/16 08:00 08/24/16 09:52 Asa - PO 325 mg DAILY@0800 MURALI Administration Celecoxib 200 mg 08/23/16 22:00 08/24/16 09:53 Celebrex - PO 200 mg BID MURALI Administration Diazepam 2 mg 08/23/16 11:45 08/24/16 03:45 Valium - PO Not Given Q8H [facility] Fentanyl 50 mcg 08/23/16 12:40 Sublimaze Injection - IVPUSH 08/26/16 12:41 [id number] PRN PAIN Ferrous Sulfate 325 mg 08/23/16 17:30 08/24/16 09:55 Feosol - PO 325 mg BIDWM [facility] Administration Gabapentin 300 mg 08/23/16 22:00 08/24/16 09:53 Neurontin - PO 08/26/16 21:59 300 mg BID MURALI Administration Magnesium Hydroxide 30 ml 08/23/16 11:28 Milk Of Magnesia - PO PRN PRN CONSTIPATION Multivitamins/Minerals/Vitamin C 1 tab 08/24/16 10:00 Tab-A-Vit - PO DAILY MURALI Ondansetron HCl 4 mg 08/23/16 11:28 Zofran Injection IVPB Q6H PRN NAUSEA Oxycodone HCl 10 mg 08/23/16 22:00 08/24/16 09:54 Oxycontin - PO 08/26/16 11:37 10 mg BID MURALI Administration Oxycodone HCl 5 mg 08/23/16 11:36 Roxicodone - PO Q3H PRN PAIN LEVEL 1-5 Oxycodone HCl 10 mg 08/23/16 11:36 08/24/16 06:55 Roxicodone - PO 10 mg Q3H PRN Administration PAIN LEVEL 6-10 Pantoprazole Sodium 40 mg 08/24/16 10:00 08/24/16 09:53 Protonix - PO 40 mg DAILY MURALI Administration Senna/Docusate Sodium 2 tablet 08/23/16 22:00 08/24/16 09:53 Pericolace - PO 2 tablet BID MURALI Administration ASSESSMENT/PLAN: 40yF with PMH R carotid artery aneurysm, multiple L hip surgeries presented for revision of L hip replacement s/p repeat dislocations. s/p L hip revision - cont care as per ortho - educated on pain management - PT as tolerated - encouraged to ambulate DVT PPX - ASA 325mg BID Dispo: Pt with no current active medical issues. We will sign off consult. Please reconsult if any new issues arise. Thank you for this consultative opportunity. Visit type - Emergency Visit Emergency Visit: Yes ED Registration Date: 08/23/16 Care time: The patient presented to the Emergency Department on the above date and was hospitalized for further evaluation of their emergent condition. - New Patient This patient is new to me today: Yes Date on this admission: 08/24/16 - Critical Care Critical Care patient: No - Discharge Referral Referred to [facility] No
[2016-08-24] MEDS: MULTIVITAMINS (DAILY MVI) TABLET (FP) PO SCH (13:58)
[2016-08-25] MEDS: ACETAMINOPHEN 325 MG TABLET (FP) PO SCH ×4 (00:41→17:50)
[2016-08-25] MEDS: diazePAM 2 MG TABLET PO SCH ×4 (04:30→20:38)
[2016-08-25] MEDS: FERROUS SO4 325 MG TABLET (FP) PO SCH ×2 (08:19→17:51)
[2016-08-25] MEDS: ASPIRIN 325 MG TABLET PO SCH (08:19)
[2016-08-25 08:23] LABS: MCH 30.5 pg (25.7-33.7); MCHC 34.5 g/dl (32.0-36.0); MEAN CELL VOLUME 88.4 fl (80-96); MEAN PLT VOLUME 10.1 fl (7.5-11.1); PLATELET COUNT 168 K/MM3 (134-434); RDW 11.4 % (11.6-15.6); WHITE BLOOD COUNT 6.7 K/mm3 (4.0-10.8)
[2016-08-25] MEDS: CELECOXIB 200 MG CAPSULE PO SCH ×2 (09:33→21:50)
[2016-08-25] MEDS: GABAPENTIN 300 MG CAPSULE (FP) PO SCH ×2 (09:33→21:50)
[2016-08-25] MEDS: SENNOSIDES/DOCUSATE COMBO (SENNA PLUS) TABLET (UD) PO SCH ×2 (09:34→21:51)
[2016-08-25] MEDS: PANTOPRAZOLE 40 MG TABLET (FP) PO SCH (09:34)
[2016-08-25] MEDS: ASCORBIC ACID 500 MG TABLET (FP) PO SCH ×2 (09:34→21:50)
[2016-08-25] MEDS: MULTIVITAMINS (DAILY MVI) TABLET (FP) PO SCH (09:34)
[2016-08-25] MEDS: oxyCODONE HCL 10 MG SUSTAINED ACTING TABLET PO SCH ×2 (09:34→21:51)
[2016-08-25] MEDS: oxyCODONE HCL 5 MG TABLET PO PRN ×2 (09:35→20:38)
--- NOTE | 2016-08-25 12:50 | PN ---
Progress Note, Physician History of Present Illness: She feels well. She was walking earlier today with a walker. Her pain is tolerable. - Current Medication List Current Medications: Active Medications Acetaminophen (Tylenol -) 650 mg PO Q6H [facility] Stop: 08/26/17 11:44 Last Admin: 08/25/16 06:56 Dose: 650 mg Al Hydroxide/Mg Hydroxide (Mylanta Oral Suspension -) 30 ml PO Q4H PRN PRN Reason: DYSPEPSIA Ascorbic Acid (Vitamin C -) 500 mg PO BID [facility] Last Admin: 08/25/16 09:34 Dose: 500 mg Aspirin (Asa -) 325 mg PO DAILY@0800 [facility] Last Admin: 08/25/16 08:19 Dose: 325 mg Celecoxib (Celebrex -) 200 mg PO BID [facility] Last Admin: 08/25/16 09:33 Dose: 200 mg Diazepam (Valium -) 2 mg PO Q8H [facility] Last Admin: 08/25/16 12:19 Dose: Not Given Fentanyl (Sublimaze Injection -) 50 mcg IVPUSH [id number] PRN PRN Reason: PAIN Stop: 08/26/16 12:41 Ferrous Sulfate (Feosol -) 325 mg PO BIDWM [facility] Last Admin: 08/25/16 08:19 Dose: 325 mg Gabapentin (Neurontin -) 300 mg PO BID [facility] Stop: 08/26/16 21:59 Last Admin: 08/25/16 09:33 Dose: 300 mg Magnesium Hydroxide (Milk Of Magnesia -) 30 ml PO PRN PRN PRN Reason: CONSTIPATION Multivitamins/Minerals/Vitamin C (Tab-A-Vit -) 1 tab PO DAILY [facility] Last Admin: 08/25/16 09:34 Dose: 1 tab Ondansetron HCl (Zofran Injection) 4 mg IVPB Q6H PRN PRN Reason: NAUSEA Oxycodone HCl (Oxycontin -) 10 mg PO BID [facility] Stop: 08/26/16 11:37 Last Admin: 08/25/16 09:34 Dose: 10 mg Oxycodone HCl (Roxicodone -) 5 mg PO Q3H PRN PRN Reason: PAIN LEVEL 1-5 Oxycodone HCl (Roxicodone -) 10 mg PO Q3H PRN PRN Reason: PAIN LEVEL 6-10 Last Admin: 08/25/16 09:35 Dose: 10 mg Pantoprazole Sodium (Protonix -) 40 mg PO DAILY [facility] Last Admin: 08/25/16 09:34 Dose: 40 mg Senna/Docusate Sodium (Pericolace -) 2 tablet PO BID [facility] Last Admin: 08/25/16 09:34 Dose: 2 tablet - Objective Vital Signs: Vital Signs Temperature 97.7 F 08/25/16 06:00 Pulse Rate 64 08/25/16 06:00 Respiratory Rate 18 08/25/16 06:00 Blood Pressure 116/63 08/25/16 06:00 O2 Sat by Pulse Oximetry (%) 99 08/25/16 09:03 Constitutional: Yes: Well Nourished, No Distress HENT: Yes: Atraumatic, Normocephalic Musculoskeletal: Yes: Other (Dressing CDI, No sign of infection. Compartments soft. Calf nontender, negative tu's sign. NVID.) Labs: CBC, BMP 08/25/16 06:20 08/24/16 07:20 Assessment/Plan POD #2 s/p left RUCHI -DVT Prophaxis -D/C planning, will likely go home tomorrow -OOB, ambulation WBAT with walker -Pain control
[2016-08-26] MEDS: ACETAMINOPHEN 325 MG TABLET (FP) PO SCH ×3 (00:15→12:23)
[2016-08-26] MEDS: oxyCODONE HCL 5 MG TABLET PO PRN (06:33)
[2016-08-26] MEDS: diazePAM 2 MG TABLET PO SCH ×2 (06:35→12:23)
[2016-08-26] MEDS: MULTIVITAMINS (DAILY MVI) TABLET (FP) PO SCH (09:34)
[2016-08-26] MEDS: GABAPENTIN 300 MG CAPSULE (FP) PO SCH (09:34)
[2016-08-26] MEDS: PANTOPRAZOLE 40 MG TABLET (FP) PO SCH (09:35)
[2016-08-26] MEDS: ASPIRIN 325 MG TABLET PO SCH (09:35)
[2016-08-26] MEDS: SENNOSIDES/DOCUSATE COMBO (SENNA PLUS) TABLET (UD) PO SCH (09:35)
[2016-08-26] MEDS: ASCORBIC ACID 500 MG TABLET (FP) PO SCH (09:35)
[2016-08-26] MEDS: oxyCODONE HCL 10 MG SUSTAINED ACTING TABLET PO SCH (09:35)
[2016-08-26] MEDS: CELECOXIB 200 MG CAPSULE PO SCH (09:35)
[2016-08-26] MEDS: FERROUS SO4 325 MG TABLET (FP) PO SCH (09:35)
[2016-08-26 14:07] VITALS: BP 111/65; PULSE 67; TEMP 98.1
--- NOTE | 2016-08-28 08:53 | PATH ---
Surgical Pathology Report Patient Name: CHATO BARKLEY Med. Rec. #: [id number] /Age/Gender: 1975 (Age: 40) / F Account: [id number] Location: [facility] MED-SURG Taken: 08/23/2016 Received: 08/23/2016 Reported: 08/28/2016 Physicians: Keerthi Mcgrath M.D. Specimen(s) Received A: FEMORAL HEAD IMPLANT B: SYNOVIUM LEFT HIP Clinical History Mechanical loosening of prosthetic Final Diagnosis A. ORTHOPEDIC HARDWARE, LEFT FEMORAL HEAD, REMOVAL: HIP PROSTHESIS (GROSS ONLY). B. SOFT TISSUE, LEFT HIP, BIOPSY: SYNOVIUM WITH HEMORRHAGE. NO ACUTE INFLAMMATION IDENTIFIED (0 NEUTROPHILS PER HIGH POWER FIELD) Electronically Signed Romie Xiao M.D. Gross Description A. Received fresh labeled "femoral head implant," and is a 3.0 x 3.0 x 2.5 cm white metallic foreign body, consistent with a femoral head prosthesis. No soft tissue is present. No sections are submitted, gross only. B. Received in formalin labeled "synovium left hip," is a 1.0 x 0.6 x 0.4 cm samson-brown, irregular portion of soft tissue, possibly consistent with synovial tissue. The specimen is submitted in toto in one cassette. 08/26/201608/26/2016
== END 2016-08-26 15:00 | disposition home or self-care (01) | DRG 499 ==
LOC: FM/S 06:03
PROVIDERS: ADMIT Orthopaedic Surgery; ATTEND Orthopaedic Surgery
PROC: 0S990ZX Drainage of Right Hip Joint, Open Approach, Diagnostic (ICD-10-PCS; 2016-08-23)
PROC: 0QW704Z Revision of Internal Fixation Device in Left Upper Femur, Open Approach (ICD-10-PCS; principal; 2016-08-23 09:19)
DX: T84.125A Displacement of internal fixation device of left femur, initial encounter (principal); R32 Unspecified urinary incontinence
CPT/HCPCS: 36415; 73502-TC-LT; 80048; 84703; 85027; 87070; 87205; 88300-TC; 88305-TC; 89051; 94010; 94760; 97116-GP; 97161-GP

== ENCOUNTER 2021-04-29 00:11 | Emergency (ER) | payer BC ==
[2021-04-29 00:57] VITALS: BP 128/85; PULSE 74; TEMP 97.9; BMI 23.3
== END 2021-04-29 02:21 | disposition home or self-care (01) ==
LOC: JER 00:11
DX: R53.83 Other fatigue (principal); Z11.52 Encounter for screening for COVID-19
CPT/HCPCS: 87804; 87807; 99283-25; C9803; U0003; U0005